=== PATIENT | male | born 1945 | race Caucasian/White ===

== ENCOUNTER 2022-09-09 13:28 | Emergency (ER) | payer OTHER ==
--- OUTSIDE RECORDS SUMMARY | 2022-09-09 13:31 | XMS REPORT | Continuity of Care Document ---
:1945 Author Organization [facility] t Address [address] [place] [address] [address] [place] [address] Care Team Providers Name Role Phone VIKKI GRAHAM Primary Care Physician Unavailable DR VIKKI GRAHAM Attending Clinician Unavailable [phone] Attending Clinician Unavailable DR VIKKI GRAHAM Admitting Clinician Unavailable Payers Payer Name Policy Type Policy Number Effective Date Expiration Date Charissa joshi MEDICARE - OP [id number] MEDICARE - OP [id number] MEDICARE - OP [id number] MEDICARE - OP [id number] Problems This patient has no known problems. Allergies, Adverse Reactions, Alerts This patient has no known allergies or adverse reactions. Medications This patient has no known medications. Procedures This patient has no known procedures. Encounters Start End Encounter Admission Attending Care Care Encounter Source Date/Time Date/Time Type Type Clinicians Facility Department ID 2022-08-06 Outpatient VIKKI GRAHAM [facility] 00 [id number] El 11:31:09 [id number] [facility] 2022-08-03 Outpatient VIKKI GRAHAM [facility] [id number] El 13:53:15 [id number] [facility] 2022-04-13 Outpatient VIKKI GRAHAM [facility] [id number] [place] 13:39:28 [id number] [facility] 2021-11-24 Outpatient VIKKI GRAHAM [facility] [id number] [place] 16:36:26 [id number] [facility] 2021-11-12 Outpatient VIKKI GRAHAM [facility] [id number] [place] 12:05:15 [id number] [facility] 2021-10-22 Outpatient VIKKI GRAHAM [facility] [id number] El 09:34:19 [id number] [facility] 2021-07-31 Outpatient VIKKI GRAHAM [facility] [id number] [place] 10:15:27 [id number] [facility] 2022-04-13 2022-04-13 [id number] 13:42:00 13:42:00 [id number] [facility] 2021-07-31 2021-07-31 [facility] [id number] 10:17:00 10:17:00 [id number] [facility] Results This patient has no known results.
[2022-09-09 14:21] LABS: Absolute Lymphocytes (CBC) 1.7 K/uL (0.7-4.9); Hematocrit 50.5 % (39.6-49.0); Lymphocytes % 16.3 % (15.3-44.8); MPV 8.2 fL (7.6-11.3); RBC Red Blood Cell Count 5.61 M/uL (4.33-5.43)
--- NOTE | 2022-09-09 14:31 | RAD REPORT ---
EXAM DESCRIPTION: RAD - Chest Single View - 09/09/2022 2:24 pm CLINICAL HISTORY: CONGESTION Chest pain. COMPARISON: <Comparisons> FINDINGS: Portable technique limits examination quality. The lungs are grossly clear. The heart is normal in size. Sternotomy wires.Multi lead pacer/defibrill ator. IMPRESSION: No acute intrathoracic process suspected.
[2022-09-09 14:44] LABS: Albumin 4.2 g/dL (3.4-5.0); Bilirubin Direct 0.2 mg/dL (0-0.2); Bilirubin Indirect, Calculated 0.3 mg/dL (0.2-0.8); Bilirubin Total 0.5 mg/dL (0.2-1.0); Magnesium 2.4 mg/dL (1.6-2.4); Potassium 3.9 mEq/L (3.5-5.1); Protein, Total 8.7 g/dL (6.4-8.2); Troponin High Sensitivity 8.9 pg/mL (<58.9)
--- NOTE | 2022-09-09 15:55 | EDPHYS ---
Physician Documentation [facility] Name: Poli Vega Age: 76 yrs Sex: Male : 1945 Arrival Date: 09/09/2022 Time: 13:28 Bed 5 Private MD: ED Physician Juan Sheridan HPI: 09/09 17:48 This 76 yrs old Male presents to ER via Ambulatory with complaints of Dizziness, Leg kdr weakness, unbalanced. 17:48 Patient complains of general bilateral leg weakness and dizziness. He just feels not kdr right. He cannot really ascribe specific or focal symptoms. He equates the newfound feeling to being started on Eliquis on the 16th of this month. He was in A-fib. Patient is otherwise nontoxic and not requiring any emergent intervention. Onset: The symptoms/episode began/occurred gradually, 1 week(s) ago. Severity of symptoms: At their worst the symptoms were very mild in the emergency department the symptoms are unchanged. The patient has not experienced similar symptoms in the past. The patient has been recently seen by a physician: the patient's primary care provider. Historical: - Allergies: 13:48 No Known Allergies; ll1 - PMHx: 13:48 Hypertensive disorder; Coronary atherosclerosis; Hypercholesterolemia; Atrial ll1 fibrillation; - PSHx: 13:48 Pacemaker/Defib; Coronary artery bypass graft; LVAD; hernia repair; ll1 - Immunization history:: Adult Immunizations up to date. - Social history:: Smoking status: Patient denies any tobacco usage or history of. ROS: 17:48 Constitutional: Negative for fever, chills, and weight loss, Eyes: Negative for injury, kdr pain, redness, and discharge, ENT: Negative for injury, pain, and discharge, Neck: Negative for injury, pain, and swelling, Cardiovascular: Negative for chest pain, palpitations, and edema, Respiratory: Negative for shortness of breath, cough, wheezing, and pleuritic chest pain, Abdomen/GI: Negative for abdominal pain, nausea, vomiting, diarrhea, and constipation, Back: Negative for injury and pain, : Negative for injury, bleeding, discharge, and swelling, MS/Extremity: Negative for injury and deformity, Skin: Negative for injury, rash, and discoloration, Psych: Negative for depression, anxiety, suicide ideation, homicidal ideation, and hallucinations, Allergy/Immunology: Negative for hives, rash, and allergies, Endocrine: Negative for neck swelling, polydipsia, polyuria, polyphagia, and marked weight changes, Hematologic/Lymphatic: Negative for swollen nodes, abnormal bleeding, and unusual bruising. 17:48 Neuro: Positive for dizziness, weakness, Patient does not claim to be vertiginous but rather just off balance not himself, Negative for altered mental status, gait disturbance, headache, numbness, seizure activity, speech changes, syncope, near syncope, tingling, tinnitus, tremor, visual changes. Exam: 17:48 Constitutional: This is a well developed, well nourished patient who is awake, alert, kdr and in no acute distress. Head/Face: Normocephalic, atraumatic. Eyes: Pupils equal round and reactive to light, extra-ocular motions intact. Lids and lashes normal. Conjunctiva and sclera are non-icteric and not injected. Cornea within normal limits. Periorbital areas with no swelling, redness, or edema. Neck: Trachea midline, no thyromegaly or masses palpated, and no cervical lymphadenopathy. Supple, full range of motion without nuchal rigidity, or vertebral point tenderness. No Meningismus. Chest/axilla: Normal chest wall appearance and motion. Nontender with no deformity. No lesions are appreciated. Cardiovascular: Regular rate and rhythm with a normal S1 and S2. No gallops, murmurs, or rubs. Normal PMI, no JVD. No pulse deficits. Respiratory: Lungs have equal breath sounds bilaterally, clear to auscultation and percussion. No rales, rhonchi or wheezes noted. No increased work of breathing, no retractions or nasal flaring. Abdomen/GI: Soft, non-tender, with normal bowel sounds. No distension or tympany. No guarding or rebound. No evidence of tenderness throughout. Back: No spinal tenderness. No costovertebral tenderness. Full range of motion. Skin: Warm, dry with normal turgor. Normal color with no rashes, no lesions, and no evidence of cellulitis. MS/ Extremity: Pulses equal, no cyanosis. Neurovascular intact. Full, normal range of motion. Neuro: Awake and alert, GCS 15, oriented to person, place, time, and situation. Cranial nerves II-XII grossly intact. Motor strength 5/5 in all extremities. Sensory grossly intact. Cerebellar exam normal. Normal gait. Psych: Awake, alert, with orientation to person, place and time. Behavior, mood, and affect are within normal limits. Vital Signs: 13:49 BP 149 / 86; Pulse 89; Resp 17; Temp 98.1; Pulse Ox 96% on R/A; Weight 68.04 kg; Height ll1 5 ft. 8 in. ; Pain 0/10; 14:12 BP 162 / 85; Pulse 85; Resp 18; Pulse Ox 96% on R/A; ld1 15:42 BP 144 / 78; Pulse 78; Resp 18; Pulse Ox 98% on R/A; ld1 13:49 Body Mass Index 22.81 (68.04 kg, 172.72 cm) ll1 13:49 Pain Scale: Adult ll1 MDM: 15:55 Patient medically screened. kdr 17:48 ED course: We had the defibrillator interrogated and it did not provide any concern for kdr dysrhythmia. Patient's condition since the last interrogation on August 25 had significantly improved with regard to the pacemaker report. The robotic maintenance technician who read the report had no concerns about the integrity of his pacemaking system and his ongoing cardiac function. 17:51 Data reviewed: vital signs, nurses notes. [facility] 09/09 13:55 Order name: Basic Metabolic Panel; Complete Time: 15:40 [facility] 09/09 13:55 Order name: CBC with Diff; Complete Time: 15:40 [facility] 09/09 13:55 Order name: LFT's; Complete Time: 15:40 [facility] 09/09 13:55 Order name: Magnesium; Complete Time: 15:40 [facility] 09/09 13:55 Order name: NT PRO-BNP; Complete Time: 15:40 [facility] 09/09 13:55 Order name: Troponin HS; Complete Time: 15:40 [facility] 09/09 13:55 Order name: XRAY Chest (1 view); Complete Time: 15:40 [facility] 09/09 13:55 Order name: EKG; Complete Time: 13:56 [facility] 09/09 13:55 Order name: Cardiac monitoring; Complete Time: 14:08 [facility] 09/09 13:55 Order name: EKG - Nurse/Tech; Complete Time: 14:08 [facility] 09/09 13:55 Order name: IV Saline Lock; Complete Time: 14:08 [facility] 09/09 13:55 Order name: Labs collected and sent; Complete Time: 14:08 kdr 09/09 13:55 Order name: O2 Per Protocol; Complete Time: 14:08 kdr 09/09 13:55 Order name: O2 Sat Monitoring; Complete Time: 14:08 kdr 09/09 14:18 Order name: Misc. Order: Interrogate [employer] defibrillator; Complete Time: 15:30 kdr Administered Medications: No medications were administered Disposition Summary: 09/09/22 15:55 Discharge Ordered Location: Home kdr Problem: an ongoing problem kdr Symptoms: are unchanged kdr Condition: Stable kdr Diagnosis - Weakness kdr Followup: kdr - With: Private Physician - When: 2 - 3 days - Reason: If symptoms return, Further diagnostic work-up, Recheck today's complaints, Continuance of care, Re-evaluation by your physician Discharge Instructions: - Discharge Summary Sheet kdr - Fatigue kdr - Weakness, [id number] kdr Forms: - Medication Reconciliation Form kdr - Thank You Letter kdr Signatures: Dispatcher [employer] Juan Monson MD MD kdr Horace Rodriguez RN RN ll1
--- NOTE | 2022-09-09 15:55 | ER ---
Nurse's Notes [facility] Name: Poli Vega Age: 76 yrs Sex: Male : 1945 Arrival Date: 09/09/2022 Time: 13:28 Bed 5 Private MD: Diagnosis: Weakness Presentation: 09/09 13:49 Chief complaint: Patient states: Dizziness, B leg weakness, unbalanced on feet, "a ll1 little fuzzy" for around 6 days. Started on Eliquis 09/03 for A fib. Coronavirus screen: Vaccine status: Patient reports receiving the 2nd dose of the covid vaccine. Client denies travel out of the [place] in the last 14 days. At this time, the client does not indicate any symptoms associated with coronavirus-19. Ebola Screen: Patient denies travel to an Ebola-affected area in the 21 days before illness onset. Initial Sepsis Screen: Does the patient meet any 2 criteria? No. Patient's initial sepsis screen is negative. Does the patient have a suspected source of infection? No. Patient's initial sepsis screen is negative. Risk Assessment: Do you want to hurt yourself or someone else? Patient reports no desire to harm self or others. Onset of symptoms was September 03, 2022. 13:49 Method Of Arrival: Ambulatory ll1 13:49 Acuity: CJ 3 ll1 Triage Assessment: 13:52 General: Appears in no apparent distress. Behavior is calm, cooperative, appropriate ll1 for age. Pain: Denies pain. Neuro: Reports dizziness, weakness unbalanced walking. Historical: - Allergies: 13:48 No Known Allergies; ll1 - PMHx: 13:48 Hypertensive disorder; Coronary atherosclerosis; Hypercholesterolemia; Atrial ll1 fibrillation; - PSHx: 13:48 Pacemaker/Defib; Coronary artery bypass graft; LVAD; hernia repair; ll1 - Immunization history:: Adult Immunizations up to date. - Social history:: Smoking status: Patient denies any tobacco usage or history of. Screenin:12 [facility] ED Fall Risk Assessment (Adult) History of falling in the last 3 months, ld1 including since admission No falls in past 3 months (0 pts). Abuse screen: Denies threats or abuse. Denies injuries from another. Nutritional screening: No deficits noted. Tuberculosis screening: No symptoms or risk factors identified. Assessment: 14:12 General: Appears in no apparent distress. comfortable, Behavior is calm, cooperative, ld1 appropriate for age. Pain: Denies pain. Neuro: Level of Consciousness is awake, alert, obeys commands, Oriented to person, place, time, situation, Appropriate for age. Neuro: Reports dizziness, headache. Cardiovascular: Capillary refill < 3 seconds Patient's skin is warm and dry. Rhythm is sinus rhythm. Respiratory: Airway is patent Respiratory effort is even, unlabored. GI: Abdomen is flat, non-distended. : No signs and/or symptoms were reported regarding the genitourinary system. EENT: No signs and/or symptoms were reported regarding the EENT system. Derm: No signs and/or symptoms reported regarding the dermatologic system. Musculoskeletal: No signs and/or symptoms reported regarding the musculoskeletal system. Vital Signs: 13:49 BP 149 / 86; Pulse 89; Resp 17; Temp 98.1; Pulse Ox 96% on R/A; Weight 68.04 kg; Height ll1 5 ft. 8 in. ; Pain 0/10; 14:12 BP 162 / 85; Pulse 85; Resp 18; Pulse Ox 96% on R/A; ld1 15:42 BP 144 / 78; Pulse 78; Resp 18; Pulse Ox 98% on R/A; ld1 13:49 Body Mass Index 22.81 (68.04 kg, 172.72 cm) ll1 13:49 Pain Scale: Adult ll1 ED Course: 13:30 Patient arrived in ED. mr 13:33 Juan Sheridan MD is Attending Physician. kdr 13:40 Arm band placed on Patient placed in an exam room, on a stretcher. ll1 13:52 Triage completed. ll1 14:08 Inserted saline lock: 20 gauge in right antecubital area, using aseptic technique. ld1 Blood collected. 14:11 Vesna Flores, MARGY is Primary Nurse. ld1 14:12 Patient has correct armband on for positive identification. Placed in gown. Bed in low ld1 position. Call light in reach. Side rails up X2. equipment monitor phototypesetting on. Pulse ox on. NIBP on. Door closed. Noise minimized. Warm blanket given. 14:12 No provider procedures requiring assistance completed. ld1 14:25 XRAY Chest (1 view) In Process Unspecified. EDMS 16:25 IV discontinued, intact, bleeding controlled, No redness/swelling at site. ld1 Administered Medications: No medications were administered Medication: 14:12 VIS not applicable for this client. ld1 Outcome: 15:55 Discharge ordered by . kdr 16:25 Discharged to home ambulatory. ld1 16:25 Condition: stable 16:25 Discharge instructions given to patient, Instructed on discharge instructions, follow up and referral plans. Demonstrated understanding of instructions, follow-up care. 16:25 Patient left the ED. ld1 Signatures: Dispatcher [employer] EDMS Juan Sheridan MD MD kdr Rivera, Mary mr Horace Rodriguez, RN RN ll1 Vesna Flores RN RN ld1
[2022-09-09 16:30] VITALS: TEMP 98.1
[2022-09-09 16:34] VITALS: BP 144/78; O2SAT 98
--- NOTE | 2022-09-10 16:30 | EKG ---
Test Date: 2022-09-09 Test Time: 14:03:06 Machine Rigger: Juve FORRESTER MEASUREMENT RESULTS: Intervals: Rate: 87 AL: 152 QRSD: 128 QT: 398 QTc: 478 Fisher: P: 76 AL: 152 QRS: 95 T: 103 INTERPRETIVE STATEMENTS: Normal sinus rhythm Left ventricular hypertrophy with QRS widening Nonspecific T wave abnormality Abnormal ECG No previous ECG available for comparison Electronically Signed On 09-10-22 16:27:59 CDT by Corey Land
== END 2022-09-09 16:25 | disposition home or self-care (01) ==
LOC: ER 13:28
DX: R53.1 Weakness (principal); R42 Dizziness and giddiness; I48.91 Unspecified atrial fibrillation; Z79.01 Long term (current) use of anticoagulants; I10 Essential (primary) hypertension; Z95.1 Presence of aortocoronary bypass graft; Z95.810 Presence of automatic (implantable) cardiac defibrillator
CPT/HCPCS: 36415; 71045; 80048; 80076; 83735; 83880; 84484; 85025; 93005; 99284